=== PATIENT | male | born 1940 | race Caucasian/White ===

== ENCOUNTER 2016-08-24 07:58 | Day surgery (SDC) | payer MEDICARE, OTHER ==
[2016-08-19 14:07] LABS: HEMATOCRIT 34.6 % (40.0-51.0); HEMOGLOBIN 11.4 g/dL (13.6-17.8)
[2016-08-19 14:23] LABS: BUN (BLOOD UREA NITROGEN) 33 MG/DL (6-23); CALCIUM, SERUM 9.3 MG/DL (8.5-10.4); CHLORIDE, SERUM 102 MMOL/L (96-112); CO2 (CARBON DIOXIDE) 30 MMOL/L (24-34); CREATININE 1.48 MG/DL (0.70-1.30); GFR AFRICAN AMERICAN 52 ML/MIN (>=60); GFR NON AFRICAN AMERICAN 45 ML/MIN (>=60); GLUCOSE, SERUM 132 MG/DL (60-99); POTASSIUM, SERUM 4.4 MMOL/L (3.5-5.3); SODIUM, SERUM 143 MMOL/L (135-148)
--- NOTE | ~2016-08-24 | OP ---
Record Of Operation [facility] [address] [place]. [address] NAME: ENRRIQUE THOMPSON : 38 STATUS : [facility]#: [id number] AGE: 76 ADM/REG DATE : 08/24/16 MR#: [id number] REPORT SERV DATE: 08/24/16 DICTATED BY: SHAN PETERS DATE: 08/24/16 REPORT STATUS : Draft TRANSCRIBED BY: [place] DATE: 08/24/16 DATE OF PROCEDURE: 08/24/2016 PREOPERATIVE DIAGNOSES: 1. 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 2. AlloDerm graftable reconstruction of 3 x 2 cm exposed bony defect. 3. Outer table craniectomy, 4 x 3 cm defect. 4. Wide local excision, right caodaism basal cell carcinoma. 5. Complex closure of 5 x 2 cm defect. EDITOR GREETING CARD: Aditya Silva M.D. ANESTHESIA: General. COMPLICATIONS: None. CONDITION: Stable to Recovery. INDICATIONS: A 76-year-old male, who is status post excision of an atypical fibroxanthoma of the right scalp followed by skin graft reconstruction, got partially infected, at an outside facility. Centrally, the skin graft did not take and exposed bone was left, 3 x 2 cm. He also had a basal cell carcinoma of the right caodaism. PROCEDURE IN DETAIL: The patient was identified in preoperative holding, taken back to the operating room, and placed supine on the operating room table. General anesthesia was established. A time-out was called, and the patient and procedure were confirmed. He was prepped and draped in a standard fashion for the operation. A 0.5 cm margin was marked around the right caodaism basal cell carcinoma and infiltrated subcutaneously with 1% lidocaine with 1:100,000 epinephrine, a total of 3 mL. He was then prepped and draped in standard fashion for the operation. Using 2.5x loupe magnification and headlight illumination, the operation commenced. Initially, a 15 blade was used to make a skin incision around the basal cell carcinoma down to the temporalis fascia and superficial temporal artery. A small branch was encountered and ligated with 3-0 silk sutures. The defect was circular in shape and Burow triangles were removed at the 12 and 6 o'clock position after frozen sections were deemed to be clear. The defect was undermined peripherally and Burow triangles removed and it was 5 cm in length x 2 cm in width. It was closed in layers using 3-0 Vicryl and a 4-0 running locking Prolene suture followed by Steri Strips. Following this, the outer table craniectomy was performed using a pineapple cutting bur. A 1 cm margin was dissected peripherally underneath the skin graft, elevated with double prong skin hooks, and the bur was used to bur through the outer table down to the diploic space with healthy vascularity centrally along with 3 x 2 cm exposed bone and then within 1 cm deep to the peripheral margins. An AlloDerm graftable dermal graft was then placed and secured with a 4-0 chromic suture peripherally. A bolster dressing was placed using Xeroform gauze and cotton balls and 2-0 silk sutures. The patient was then awakened and taken to Recovery in stable condition. Record Of Operation [id number] [place]. [address] NAME: ENRRIQUE THOMPSON : 38 STATUS : [facility] PAT#: [id number] AGE: 76 ADM/REG DATE : 08/24/16 MR#: [id number] REPORT SERV DATE: 08/24/16 DICTATED BY: SHAN PETERS DATE: 08/24/16 REPORT STATUS : Draft TRANSCRIBED BY: LEE DATE: 08/24/16 ARNOL/LEE Shan Peters M.D. / [id number] CC: Yelena Razo M.D.
[~2016-08-24 07:58] MED LIST: ACTOS15 PO; ANUSOL HC SUPP1 SUPP PR; ASAB PO; BENEFIBE6 PO; CALAN40 MG PO; CO Q-1050 MG PO; COQ10100 MG OR; COZ50 PO; GLUCOPHXR7 PO; HCTZ25B PO; JUICE PLUS PO; KDUR20 PO; L40 PO; NORV5 PO; ROCALTROL 0.0.25 MCG PO; SAL750 PO; T PO; VALTURNA PO; VITAMIN D31000 UNIT PO; ZOCOR40 PO
[2016-08-24 08:42] LABS: ALBUMIN 3.8 G/DL (3.5-5.0); DIRECT BILIRUBIN 0.2 MG/DL (0.0-0.4); INDIRECT BILIRUBIN(NOT ORDER) 0.7 MG/DL (0.1-0.9); TOTAL BILIRUBIN 0.9 MG/DL (0-1.2); TOTAL PROTEIN 7.4 G/DL (6.0-8.5)
== END 2016-08-24 13:56 | disposition home or self-care (01) ==
LOC: SDC 07:58
PROVIDERS: Specialist
PROC: 0WB Anatomical Regions, General, Excision (ICD-10-PCS; principal; 2016-08-24 09:00)
DX: C44.319 Basal cell carcinoma of skin of other parts of face (principal); C44.42 Squamous cell carcinoma of skin of scalp and neck; I12.9 Hypertensive chronic kidney disease with stage 1 through stage 4 chronic kidney disease, or unspecified chronic kidney disease; G47.33 Obstructive sleep apnea (adult) (pediatric); N18.2 Chronic kidney disease, stage 2 (mild); Z86.718 Personal history of other venous thrombosis and embolism; Z87.891 Personal history of nicotine dependence; Z90.89 Acquired absence of other organs; Z96.1 Presence of intraocular lens; H93.19 Tinnitus, unspecified ear; Z97.4 Presence of external hearing-aid; K57.30 Diverticulosis of large intestine without perforation or abscess without bleeding; M19.90 Unspecified osteoarthritis, unspecified site; Z87.19 Personal history of other diseases of the digestive system; E11.22 Type 2 diabetes mellitus with diabetic chronic kidney disease
CPT/HCPCS: 80048; 80076; 82962; 85014; 85018; 88305; 88331; 93005; A9270-GY; J0330; J0690; J2370; J2405; J2710; J3010; Q4116